=== PATIENT | female | born 1955 | race Caucasian/White ===

== ENCOUNTER → 2018-05-20 10:53 | Outpatient (CLI) | payer OTHER, SELFPAY ==
--- NOTE | 2018-05-20 | DI.MRI.S_ITS ---
PROCEDURE: MR CERVICAL SPINE WO CON INDICATIONS: RIGHT CERVICAL RADICULOPATHY TECHNIQUE: Noncontrast sagittal T1 spin echo and T2 fast spin echo, sagittal STIR, foraminal oblique sagittal T2 fast spin echo, and axial gradient echo or T2 fast spin echo through the cervical spine. COMPARISON: None. FINDINGS: Image quality: Excellent. Alignment and Curvature: There is normal bony alignment. Bone Marrow: Marrow demonstrates normal overall signal. Spinal Cord: Visualized spinal cord has normal size and signal. No cerebellar tonsillar herniation. Paraspinous Soft Tissues: No paravertebral masses. Prevertebral soft tissues are normal in thickness. C2-C3: Normal appearance. C3-C4: Preserved disc height and disc desiccation. There is mild posterior disc bulge and uncovertebral hypertrophy. The central canal is patent. No foraminal stenosis. C4-C5: Preserved disc height and disc desiccation. There is mild posterior disc bulge and uncovertebral hypertrophy. Mild bilateral facet arthropathy. The central canal is patent. Mild right foraminal stenosis. No left foraminal stenosis. C5-C6: Moderate loss of disc height and disc desiccation. There is circumferential posterior disc bulge and disc osteophyte complex. Mild bilateral facet arthropathy. The central canal is moderately narrowed. There is mild flattening of the anterior cord at this level. Moderate to severe right and mild to moderate left foraminal stenosis. C6-C7: Moderate loss of disc height and disc desiccation. There is posterior posterior disc bulge and possible small posterior central annular fissure. Uncoverteb hypertrophy. The central canal is moderately narrowed. Moderate bilateral foraminal stenosis. C7-T1: Mild posterior disc bulge and disc desiccation with preserved disc height. No central canal or foramina stenosis. IMPRESSION: 1. Multilevel degenerative disc disease and facet arthropathy as described. 2. Moderate central canal stenosis at C5-C6 and C6-C7. 3. Multilevel foraminal stenoses as described. Dictated by: Roni Jackson M.D. on 05/20/2018 at 13:52 Approved by: Roni Jackson M.D. on 05/20/2018 at 14:08
== END ==
PROVIDERS: PCP Physician Assistant Medical; Visit Provider Family Medicine
DX: M50.11 Cervical disc disorder with radiculopathy, high cervical region (principal); M47.22 Other spondylosis with radiculopathy, cervical region; M48.02 Spinal stenosis, cervical region
CPT/HCPCS: 72141

== ENCOUNTER → 2020-08-28 11:44 | Outpatient (CLI) | payer MEDICARE, SELFPAY ==
[2020-08-28 13:42] LABS: COVID19 -Nasal RAPID Negative (Negative)
== END ==
PROVIDERS: PCP Physician Assistant Medical; Visit Provider Physician Assistant
DX: Z20.822 Contact with and (suspected) exposure to COVID-19 (principal)
CPT/HCPCS: 87635; C9803

== ENCOUNTER → 2020-08-30 08:52 | Outpatient (CLI) | payer MEDICARE, SELFPAY ==
--- NOTE | 2020-08-30 16:50 | DI.NM.S_ITS ---
DATE OF SERVICE: 08/30/2020 PROCEDURE PERFORMED: Exercise treadmill stress and rest myocardial perfusion imaging with gating to assess ejection fraction and regional wall motion. ORDERING PROVIDER: Dr. Jerel Lainez. INDICATIONS: The patient is a 65-year-old female with recent exertional dyspnea and concern for congestive heart failure. EXERCISE TREADMILL TESTING: The patient was able to exercise for 4 minutes and 16 seconds on a standard Arturo protocol suggesting moderately reduced exercise capacity with an HERNÁN of +29%. She had a normal heart rate and blood pressure response to exercise, achieving a maximum heart rate of 162 BPM (105% of her predicted maximum). Her oxygen saturation remained >93% throughout. She had no chest discomfort, but had limiting dyspnea. Her resting ECG shows sinus rhythm with normal ST segments. With exercise, she developed some mild, nonspecific ST depression of 1-1.5 mm generally upsloping but at times flat but nearly completely resolved within 1 minute of recovery. She had occasional PVCs, rarely in couplets, but no other concerning complex ectopy. At 3 minutes and 16 seconds of exercise, at a heart rate of 148 BPM, 25.6 millicuries of technetium-99m Myoview was injected and she was imaged 20 minutes later using a gated SPECT acquisition protocol. Earlier in the day while at rest, she had been injected with 9.7 millicuries of technetium-99m Myoview, and was scanned 30 minutes later, again using a gated SPECT acquisition protocol. FINDINGS: 1. Raw Data: There is fairly good myocardial tracer uptake with mild breast shadows noted. While the lung/heart ratio was significantly elevated at 0.76, suggesting possible pulmonary congestion, this is not clearly evident on the images and, thus, is nonspecific. TID ratio was normal at 1.09. 2. Quantitated gated SPECT: Post-stress ejection fraction is estimated at 72% without any focal wall motion abnormality. The right ventricle grossly appears normal in size and systolic function. The resting ejection fraction is 65% with a mildly increased end-diastolic volume of 124 mL. 3. Post stress supine perfusion images show a mild perfusion defect in the mid anterior wall, consistent with a breast attenuation artifact, supported by its complete resolution on the prone images. There are no other perfusion defects. The resting images show an identical perfusion pattern without any areas of improvement. IMPRESSION: 1. Normal myocardial perfusion study for ischemia. 2. Mild fixed mid anterior wall defect that completely resolves on prone imaging, likely reflecting breast attenuation artifact. Although a previous nontransmural infarction cannot be entirely excluded, it is unlikely given the absence of any focal wall motion abnormality. There is no evidence for any myocardial ischemia. 3. Normal left ventricular systolic function without any focal wall motion abnormality although with mildly increased left ventricular volumes. The lung/heart ratio is elevated, which can be a sign of pulmonary congestion, although it is not visually evident and therefore is somewhat nonspecific. 4. Moderately reduced exercise capacity without angina or significant ECG evidence of ischemia. Oxygen saturation levels remained normal. Ca Xie - NOLVIA/bud/sb doc#: [id number]/job#: [id number] dd: 08/30/2020 16:20:00 dt: 08/30/2020 16:38:00 DICTATING /COPIES TO: Jerel Lainez MD COPIES MNE: ROSA;
== END ==
PROVIDERS: PCP Nurse Practitioner; Referring Provider Specialist; Visit Provider Specialist
DX: R06.09 Other forms of dyspnea (principal)
CPT/HCPCS: 78452; 93017; A9502

== ENCOUNTER → 2020-09-01 09:34 | Outpatient (CLI) | payer MEDICARE, SELFPAY | PROVIDERS: PCP Nurse Practitioner; Visit Provider Physician Assistant | DX: R31.9 Hematuria, unspecified (principal) | CPT/HCPCS: 87077; 87086; 87186 ==

== ENCOUNTER → 2020-09-26 14:40 | Outpatient (CLI) | payer MEDICARE, SELFPAY ==
--- NOTE | 2020-09-26 | DI.ECHO.S_ITS ---
[facility]---------+ [facility] +---------+ : : [address] : [place] : : : : [id number] : : : : Phone: [phone]+ Echocardiogram Report + + :Name: LADARIUS FAY Study Date: 09/26/2020 Height: 64 in : :[facility] ReadingLocation: Weight: 187 lb : : Gender: Female BSA: 1.9 m2 : :: 1955 Age: 65 yrs BP: 145/77 mmHg: :Reason For Study: DYSPNEA : :Ordering Physician: KATARINA, : :ERIC Performed By: Marjorie Nagy : :Referring: ERIC BRAY : + + Interpretation Summary Left ventricular size and function appear normal with an ejection fraction estimated at 55 to 60% without any focal wall motion abnormality. Diastolic function is likely normal with normal filling pressures. The right ventricle appears normal in size and systolic function. Right ventricular systolic pressure and CVP cannot be estimated, although the latter is likely not elevated. There is mild left atrial enlargement. The interatrial septum appears intact. There is mild mitral regurgitation through a normal-appearing valve but there is no other significant valvular abnormality. Procedure: A two-dimensional transthoracic echocardiogram with color flow and Doppler was performed. The study quality was technically difficult. A contrast injection of Definity was performed to improve assessment of LV function. There is no prior echocardiogram noted for this patient. The patient was in sinus rhythm with heart rates between 69-83 bpm during the exam. Left Ventricle: The left ventricle is normal in size and wall thickness. The ejection fraction is estimated to be 55-60%. Diastolic parameters suggest probable normal left ventricular diastolic function and normal filling pressures. Right Ventricle: The right ventricle is normal in size and function. Atria: The left atrium is mildly dilated. Right atrial size is normal. There is no Doppler evidence for an interatrial shunt. The interatrial septum grossly appears intact with no obvious evidence for an atrial septal defect. Mitral Valve: There is mild mitral annular calcification. The mitral valve leaflets appear normal. There is no evidence of stenosis, fluttering, or prolapse. There is mild mitral regurgitation. Aortic Valve: The aortic valve is trileaflet. The aortic valve opens well. There is no aortic valve stenosis. No aortic regurgitation is present. Tricuspid Valve: The tricuspid valve is not well visualized, but is grossly normal. There is trace tricuspid regurgitation. Pulmonary artery pressures cannot be estimated because of the lack of a measurable TR jet velocity. Pulmonic Valve: The pulmonic valve leaflets are thin and pliable; valve motion is normal. There is a trace or physiologic amount of pulmonic regurgitation. Great Vessels: The aortic root is normal size. The dimensions of the ascending aorta are normal. The inferior vena cava was not well visualized. Pericardium/ Pleura There is no pericardial effusion. There is no pleural effusion. MMode/2D Measurements & Calculations LVIDd: 5.2 cm LVOT diam: 2.0 cm LVIDs: 3.0 cm Ao root diam: 3.2 cm FS: 41.7 % asc Aorta Diam: 3.1 cm EPSS: 0.73 cm Ao Arch Diam (Prox Trans): 2.8 cm IVSd: 0.79 cm LVPWd: 0.88 cm LV acuña. diameter/BSA (cm/m^2): 2.7 LV sys. diameter/BSA (cm/m^2): 1.6 LA A2 area: 23.0 cm2 RA long axis: 5.0 cm LA A4 area: 20.1 cm2 RA area: 16.8 cm2 LA length (vol): 5.6 cm RA vol: 47.3 ml LA vol: 69.8 ml RA : 24.9 ml/m2 LA vol index: 36.7 ml/m2 IVC diam: 0.87 cm RVD1 (basal): 3.2 cm TAPSE: 1.8 cm Doppler Measurements & Calculations Ao V2 max: 137.7 cm/sec LVOT Max Thee: 112.5 cm/sec Ao V2 mean: 95.5 cm/sec LV V1 max P.1 mmHg Ao max P.6 mmHg LV V1 VTI: 23.5 cm Ao mean P.0 mmHg SEBASTIAN(I,D): 2.8 cm2 Ao V2 VTI: 26.7 cm SEBASTIAN(V,D): 2.6 cm2 sev ratio: 0.88 SEBASTIAN indexed to BSA (cm^2/m^2): 1.5 MV E max thee: 107.2 cm/sec PA V2 max: 92.2 cm/sec MV A max thee: 106.5 cm/sec PA V2 mean: 64.4 cm/sec MV E/A: 1.0 PA mean P.9 mmHg Med Peak E' Thee: 7.1 cm/sec PA pr(Accel): 9.6 mmHg E/E' med: 15.0 Lat Peak E' Thee: 9.8 cm/sec E/E' lat: 10.9 E/e' average: 13.0 MV dec time: 0.21 sec [facility] 74.4 ml Reading Physician:07:34 AM
== END ==
PROVIDERS: PCP Nurse Practitioner; Referring Provider Specialist; Visit Provider Specialist
DX: I34.0 Nonrheumatic mitral (valve) insufficiency (principal); R06.00 Dyspnea, unspecified
CPT/HCPCS: 93306; Q9957